=== PATIENT | male | born 2005 | race Caucasian/White ===

== ENCOUNTER 2024-06-16 13:59 | Emergency (ER) | payer OTHER | END 2024-06-16 15:56 | disposition home or self-care (01) | LOC: ERS 13:59 | DX: S43.402A Unspecified sprain of left shoulder joint, initial encounter (principal); G43.909 Migraine, unspecified, not intractable, without status migrainosus; X50.1XXA Overexertion from prolonged static or awkward postures, initial encounter; Y93.53 Activity, golf | CPT/HCPCS: 99283 ==